=== PATIENT | male | born 1990 | race Hispanic/Latino ===

== ENCOUNTER 2019-06-04 20:31 | Emergency (ER) | payer OTHER ==
[~2019-06-04] VITALS: Ht 175.3 cm; Wt 88.0 kg
[2019-06-04] MEDS ORDERED: KETOROLAC TROMETHAMINE 30 MG/ML VIAL IV STA (20:48)
[2019-06-04] MEDS ORDERED: ASPIRIN 81 MG CHEW TAB PO ONE (21:00)
== END 2019-06-04 21:05 | disposition left against medical advice (07) ==
LOC: ER 20:31
DX: R07.89 Other chest pain (principal)
CPT/HCPCS: 93005